=== PATIENT | male | born 1955 | race Caucasian/White ===

== ENCOUNTER 2016-09-06 19:22 | Emergency (ER) | payer MEDICARE, MEDICAID ==
[~2016-09-06] VITALS: Ht 180.3 cm; Wt 108.6 kg
[~2016-09-06 19:22] MED LIST: AVAPRO300 M1; AVAPRO300 M1 PO; HUMALOG MIX 75/10 ML; HUMALOG MIX 75/10 ML SQ; INSULIN 75/2100 U/ML SQ; LIPITOR 40MG TA40 MG; LIPITOR 40MG TA40 MG PO; PROSCAR 5MG5 MG
[2016-09-06 19:25] VITALS: TEMP 97.6
[2016-09-06] MEDS ORDERED: PRINIVIL40 MG (19:47)
[2016-09-06] MEDS ORDERED: AMOXICILLIN 8751 TAB PO (20:59)
[2016-09-06 21:19] LABS: BASO # 0.1 (0.0-0.2); BASO % 1.3 % (0.0-2.0); EOS # 0.2 (0.0-0.7); EOS % 2.8 % (0-4.0); GRAN # 2.4 (1.4-6.5); HEMATOCRIT 39.6 % (42.0-52.0); HEMOGLOBIN 13.6 g/dl (13.5-18.0); LYMPH # 2.3 (1.2-3.4); LYMPH % 42.6 % (20.0-51.0); MEAN CELL VOLUME 89 fl (80.0-100.0); MEAN CORPUSCULAR HEMOGLOBIN 31 pg (27.0-31.0); MEAN CORPUSCULAR HGB CONC 34 g/dl (33.0-37.0); MEAN PLATELET VOLUME 9.7 fl (7.4-10.4); MONO # 0.5 (0.1-0.6); MONO % 9.1 % (1.7-9.3); PLATELET COUNT 175 K/mm3 (130-400); RED BLOOD COUNT 4.43 M/mm3 (4.20-5.60); REDCELL DISTRIBUTION WIDTH-CV 12.9 % (11.5-14.5); WHITE BLOOD COUNT 5.4 K/mm3 (4.8-10.8)
[2016-09-06 21:30] VITALS: BP 153/79; PULSE 66
[2016-09-09] MEDS ORDERED: LEVAQUIN 5500 MG/TA1 PO (15:16)
== END 2016-09-06 21:30 | disposition home or self-care (01) ==
LOC: COL.ER 19:22
PROVIDERS: Emergency Medicine
DX: S91.132A Puncture wound without foreign body of left great toe without damage to nail, initial encounter (principal); L03.032 Cellulitis of left toe; X58.XXXA Exposure to other specified factors, initial encounter; E11.40 Type 2 diabetes mellitus with diabetic neuropathy, unspecified; Z79.4 Long term (current) use of insulin

== ENCOUNTER 2016-10-31 08:07 | Emergency (ER) | payer MEDICARE, MEDICAID ==
[~2016-10-31] VITALS: Ht 180.3 cm; Wt 107.3 kg
[~2016-10-31 08:07] MED LIST changes: +AMOXICILLIN 8751 TAB PO; +LEVAQUIN 5500 MG/TA1 PO; +PRINIVIL40 MG
[2016-10-31 08:13] VITALS: BP 150/87; TEMP 97.6
[2016-10-31 09:23] LABS: BASO # 0.1 (0.0-0.2); BASO % 1.4 % (0.0-2.0); EOS # 0.2 (0.0-0.7); EOS % 3.2 % (0-4.0); GRAN # 2.6 (1.4-6.5); GRAN % 51.4 % (42.2-75.2); HEMATOCRIT 42.8 % (42.0-52.0); LYMPH # 1.9 (1.2-3.4); LYMPH % 37.3 % (20.0-51.0); MEAN CELL VOLUME 89 fl (80.0-100.0); MEAN CORPUSCULAR HEMOGLOBIN 31 pg (27.0-31.0); MEAN CORPUSCULAR HGB CONC 35 g/dl (33.0-37.0); MEAN PLATELET VOLUME 10.3 fl (7.4-10.4); MONO # 0.3 (0.1-0.6); MONO % 6.3 % (1.7-9.3); PLATELET COUNT 183 K/mm3 (130-400); RED BLOOD COUNT 4.83 M/mm3 (4.20-5.60); REDCELL DISTRIBUTION WIDTH-CV 12.5 % (11.5-14.5); WHITE BLOOD COUNT 5.1 K/mm3 (4.8-10.8)
[2016-10-31 09:28] LABS: PROTHROMBIN TIME 11.5 SECONDS (9.7-12.8)
[2016-10-31 09:31] LABS: PARTIAL THROMBOPLASTIN TIME 29.9 SECONDS (26.0-37.0)
[2016-10-31 09:36] LABS: ADJUSTED CALCIUM 9.5 mg/dL (8.4-10.2); ALANINE AMINOTRANSFERASE 48 U/L (21-72); ALBUMIN 3.9 gm/dL (3.5-5.0); ALKALINE PHOSPHATASE 54 U/L (50-136); ANION GAP 13 mmol/L (7-16); BILIRUBIN,TOTAL 0.8 mg/dL (0.0-1.0); BLOOD UREA NITROGEN 16 mg/dL (9-20); CALCIUM 9.4 mg/dL (8.4-10.2); CARBON DIOXIDE 28 mmol/L (22-30); CHLORIDE 101 mmol/L (98-107); CREATININE, serum 0.95 mg/dL (0.66-1.25); GLUCOSE 258 mg/dL (74-106); POTASSIUM 3.8 mmol/L (3.4-5.0); SODIUM 142 mmol/L (137-145); TOTAL PROTEIN 7.1 gm/dL (6.4-8.2)
[2016-10-31 10:09] LABS: TROPONIN-I < 0.012 ng/mL (0.000-0.034)
[2016-10-31] MEDS ORDERED: VOLTAREN 75 DR75 MG PO (10:28)
[2016-10-31 10:40] VITALS: PULSE 78
== END 2016-10-31 10:35 | disposition home or self-care (01) ==
LOC: COL.ER 08:07
PROVIDERS: Emergency Medicine
DX: I10 Essential (primary) hypertension (principal); E11.65 Type 2 diabetes mellitus with hyperglycemia; R07.89 Other chest pain; Z79.4 Long term (current) use of insulin
CPT/HCPCS: J1885; J2765; J3010; J7040

== ENCOUNTER 2016-12-04 06:58 | Day surgery (SDC) | payer MEDICARE, MEDICAID ==
[~2016-12-04] VITALS: Ht 180.3 cm; Wt 107.3 kg
[~2016-12-04 06:58] MED LIST changes: +VOLTAREN 75 DR75 MG PO
[2016-12-04 07:50] VITALS: BP 145/92; PULSE 80; TEMP 97.6
[2016-12-04] MEDS ORDERED: XALATAN EYE DROPS OD (07:55)
[2016-12-04] MEDS ORDERED: HUMALOG MIX 75/10 ML SQ (07:59)
[2016-12-04] MEDS ORDERED: LOTEMAX 5 ML 5 M5 ML OD (08:00)
[2016-12-04] MEDS ORDERED: COMBIGAN 0.2%-0.5 ML OD (08:04)
[2016-12-04 09:30] VITALS: BP 102/66; PULSE 82; TEMP 97.2
[2016-12-04 09:45] VITALS: BP 113/77; PULSE 76
[2016-12-04 10:00] VITALS: BP 105/69; PULSE 71
[2016-12-04 12:49] VITALS: BP 83/53; PULSE 69
== END 2016-12-04 10:20 | disposition home or self-care (01) ==
LOC: SDCO 06:58
DX: R19.5 Other fecal abnormalities (principal); I10 Essential (primary) hypertension; E11.9 Type 2 diabetes mellitus without complications; Z79.4 Long term (current) use of insulin
CPT/HCPCS: OP; J2250; J3010